=== PATIENT | female | born 1945 | race Caucasian/White ===

== ENCOUNTER → 2016-09-16 | Outpatient (CLI) | payer MEDICARE, OTHER ==
[~2016-09-16] MED LIST: ALLEGRA DPS180 MG PO; ASA325 MG PO; BONIVA150 MG PO; CALCIUM 600 +1 EAC6 PO; LACRI-LUBE3.5 GM OU; MIRALAX17 GM PO; MONTELUKAST SOD10 MG PO; OXY IR DPS5 MG PO; PROTONIX40 MG PO; RESTASIS1 EACH OU; SENOKOT S1 TAB PO; SYNTHROID100 MCG PO; THERAPEUTIC MUL1 TAB PO; TYLENOL DPS325 MG PO; ULTRAM DPS50 MG PO
== END | disposition home or self-care (01) ==
LOC: PTH.S 08:03
DX: Z01.812 Encounter for preprocedural laboratory examination (principal)

== ENCOUNTER 2016-10-01 08:08 | Inpatient (IN) | payer MEDICARE, OTHER ==
[~2016-10-01] VITALS: Ht 162.6 cm; Wt 84.5 kg
--- NOTE | ~2016-10-01 | OR ---
ADMIT: 10/01/2016 RM/LOC: 532 [facility] MR#: [id number] [address] [address] [address] [place] [address] Operative/Delivery Room Report SEX: F AGE: 71 : 1945 SURGERY DATE: 10/01/2016 SURGEON: Kevin Chino MD PREOPERATIVE DIAGNOSIS: Right knee degenerative joint disease. POSTOPERATIVE DIAGNOSIS: Right knee degenerative joint disease. PROCEDURE: Right total knee arthroplasty with Exparel knee block. PARTY HOST/HOSTESS: CAROL Rodgers ANESTHESIA: Spinal. ESTIMATED BLOOD LOSS: 50 mL. TOTAL TOURNIQUET TIME: Approximately 77 minutes. COMPLICATIONS: None. CONDITION: Stable to recovery room. IMPLANTS USED: We used a DePuy Sigma posterior stabilized total knee arthroplasty. A size 4 narrow component, size 3 tibial tray, a 10 mm tibial insert, and a 32 mm patellar button. Two Batches of cement. INDICATIONS: The patient is a 71-year-old female with longstanding right knee pain. We scoped the knee in the past, treated her conservatively with injections, activity modification, anti-inflammatory medications without relief of her symptoms. They continued to worsen and caused her significant pain and discomfort here. At this point, she would like to proceed with a right total knee arthroplasty. We discussed procedure, as well as the risks and benefits with her. She does agree to proceed at this point. Questions were also answered. PROCEDURE IN DETAIL: After informed consent was obtained, the patient was taken to the operating room, placed on the operating table in supine position. The patient was placed in a seated position and spinal anesthetic was administered. After adequate spinal anesthesia, the patient was returned to supine, tourniquet was placed on right upper thigh and right lower extremity was prepped and draped in the usual sterile fashion. Once this was completed, we exsanguinated the right lower extremity, inflated the tourniquet to 300 mmHg. We then made a midline incision through the skin and subcutaneous tissues, made a bit of a medial flap here. We then entered the knee joint through a medial parapatellar incision. Once this was completed, we removed the fat pad and synovium in the suprapatellar region. Once this was completed, we then performed a medial release off the proximal tibia using Bovie electrocautery as well as a Romero elevator. The patella was then everted, knee flexed, and the infrapatellar fat pad was excised at this point. Once this was ADMIT: 10/01/2016 RM/LOC: 532 [facility] MR#: [id number] [address] [address] [address] [place] [address] Operative/Delivery Room Report SEX: F AGE: 71 : 1945 completed, the intramedullary guide for the femoral component was then placed into the distal femur. We then placed the intramedullary guide, set to remove 12 mm of distal bone and 5 degrees of valgus. Once this was completed, we pinned the cutting guide in position and made our distal femoral cut. Once this was completed, the tibial guide was then placed, and once this was in good position, this was pinned and our tibial cut was then performed. The tibial bone was removed using a large clamp and Bovie electrocautery. Once this was completed, the knee was then extended, we placed a 10 mm spacer block with good full extension, and good stability noted. We then placed a clinical services director, cleaned the medial lateral meniscus and soft tissue at this point. Once this was all cleaned out, attention was directed to patella. We set the patella guide to remove 9.5 mm patella, clamped the patella, everted this, and made our patellar cut. This sized to a size 32, placed the template, and impacted this into position, and drilled the lugs for the patella. A 32 mm patellar button was then placed. The patella was once again everted and the knee was then flexed back up again. We placed the femoral sizing guide and this sized to about a size 4. We then placed the size 4 four-in-one cutting guide in 3 degrees of external rotation, pinned this into position in the neutral hole. We then made our anterior, posterior, and chamfer cuts. We then placed a size 4 box cutting guide, pinned this into position, and made our box cut. Once this was completed, we then trialed the knee. We placed a 4 narrow femoral component. This was a good fit on the femur. A size 3 tibial tray, 32 mm patellar button, and a 10 mm insert. We got a good full extension here, good flexion, good tracking of the patella, also with good stability. Once this was completed, we then drilled the lugs for the femoral component. The trial components were then removed at this point. A medial, lateral, and popliteal retractors were then placed, and the size 3 tibial tray was then placed and this appeared to be good size fit with the tibia well and this was then pinned into position. We then prepared the tibia using the reamer, followed by the keel punch. Once this was completed, the knee was then extended, and once again, the knee was copiously irrigated. The medial, lateral, and posterior capsule was injected with Exparel at this time. Once this was completed, the knee was then flexed back up. The components were opened on the back table to include a size 4 narrow femoral component, a size 3 tibial component, and a 32 mm patellar button. While we were washing the knee including the bone ends, the cement was being mixed on the back table. Medial, lateral, and popliteal retractors were replaced. Once the bone ends were copiously irrigated and cleaned using pulse lavage, we used lap and sponges to dry the bone and sterilely. Once this was completed, and the cement was ready, we then placed cement onto the proximal tibia, finger packing this down into the keel hole and onto the proximal tibia. The tibial component was then placed and impacted into position. The excess cement was removed using a [place] elevator. Once this was completed, the cement was then placed onto the distal femur, 2 small dabs on the posterior condyle of the component. We then placed the femoral component, impacted this into position removing the excess cement using a [place] elevator. We then placed a 12.5 insert to compress this while the cement was drying put the heel on the table on a pad. Cement was then placed onto the patella and the 32 mm patellar button was then placed, patellar clamp was ADMIT: 10/01/2016 RM/LOC: 532 [facility] MR#: [id number] [address] [address] [address] [place] [address] Operative/Delivery Room Report SEX: F AGE: 71 : 1945 placed. Holding this in position, the excess cement was once again removed using a [place] elevator. Once this was completed, the knee was copiously irrigated with fluid and we waited for the cement to cure. While the cement was curing, we injected additional Exparel in the quad tendon periosteum and remaining suprapatellar pouch region. Once the cement was cured, we removed the patellar clamp. We removed the 12.5 insert, placed a 10 insert once again, good full extension, good flexion, good stability, and good tracking of the patella. At this point, we elected to use a 10 mm tibial insert. The knee was then flexed up. The trial insert was removed. Tibial tray was copiously irrigated, and a permanent 10 mm insert was placed into the tray, impacted, and locked into position here. Once this was completed, the knee was once again copiously irrigated. A medium Hemovac drain was placed. The medial parapatellar incision was reapproximated using #1 Vicryl in a [id number] fashion. The remainder of the Exparel was injected in the subcutaneous tissue. Subcutaneous tissue was then closed using 2-0 Vicryl in a simple interrupted fashion. Skin was closed using skin luke. A sterile compressive dressing was then applied consisting of Xeroform, plain gauze, ABDs, Webril, Delfino wrap from the foot to the thigh. The patient was then transferred to recovery in stable condition. Tourniquet was deflated for a total tourniquet time approximately 77 minutes. I think we are going to keep the drain to gravity for 6 hours and then suction drainage. EDIT: 10/02/2016 0558 njv Kevin Chino MD/ mariah JOB #: [id number] CC: Kevin Chino, Attending Physician Alexis Ibarra ([facility]), Family Physician
--- NOTE | ~2016-10-01 | HP ---
ADMIT: 10/01/2016 RM/LOC: W.02 [facility] MR#: [id number] [facility]#: [id number] [address] [address] [address] [place] [address] Pre-OP History and Physical SEX: F AGE: 71 : 1945 DATE OF SERVICE: CHIEF COMPLAINT: Right knee pain. HISTORY OF PRESENT ILLNESS: The patient is a 71-year-old female, whom we have been seeing for right knee pain and degenerative joint disease here. At this time, she has failed conservative treatment and elected to proceed with a right total knee arthroplasty. We have done anti-inflammatories injections. She has had a knee scope in the past here as well. Also, she has had injections in the knee and activity modification. She is to the point where the knee is significantly interfering with her daily activities and she would like to proceed with knee replacement at this point. We discussed procedure as well as risks and benefits with her at length. She would like to proceed. PAST MEDICAL HISTORY: Significant for hypothyroidism, allergic rhinitis, osteoarthritis. MEDICATIONS: Include: 1. Multivitamin. 2. Meloxicam. 3. Fluticasone. 4. Levothyroxine. 5. Calcium. 6. Aspirin. 7. Montelukast. 8. Tylenol Extra Strength. 9. Ibandronate. 10.Fexofenadine. 11.Fish oil concentrate. 12.Restasis Multidose. 13.Refresh eye drops. ALLERGIES: TETANUS VACCINE AND TOXOID. SOCIAL HISTORY: Denies alcohol or tobacco use. Lives in [place]. REVIEW OF SYSTEMS: Noncontributory. PHYSICAL EXAMINATION: HEENT, HEART, LUNGS, AND ABDOMEN: As per Dr. Bryant's preoperative evaluation. MUSCULOSKELETAL: Examination of the right knee rather note much way of an effusion. Range of motion, close to 0 degrees of extension. Flexion about 125 degrees. No ligamentous instability. She does have some crepitus in the knee, tenderness along both medial and lateral joint lines as well as parapatellar region. She otherwise distally neurovascularly intact. ADMIT: 10/01/2016 RM/LOC: [facility] MR#: [id number] [address] [address] [address] [place] [address] Pre-OP History and Physical SEX: F AGE: 71 : 1945 IMAGING: X-ray show at least moderate degenerative changes in the right knee. No significant osteophytes or subchondral sclerosis noted. ASSESSMENT: Right knee degenerative joint disease, which has failed conservative treatment. PLAN: At this point, she would like to proceed with a right total knee arthroplasty. The procedure as well as risks and benefits were discussed with the patient at length. Questions were answered. We also showed DVD on total knee arthroplasty in the office as well. Plan on doing a right DePuy Sigma total knee arthroplasty. She does understand and does agree to proceed at this point. I will plan on doing this at [facility]. Kevin Chino MD/ mariah JOB #: [id number] CC: Kevin Chino, Attending Physician Alexis Ibarra ([facility]), Family Physician
[2016-10-04] MEDS ORDERED: THERAPEUTIC MUL1 TAB PO (19:48)
[2016-10-04] MEDS ORDERED: ASA325 MG PO (19:49)
[2016-10-04] MEDS ORDERED: MONTELUKAST SOD10 MG PO (19:49)
[2016-10-04] MEDS ORDERED: CALCIUM 600 +1 EAC6 PO (19:49)
[2016-10-04] MEDS ORDERED: SYNTHROID100 MCG PO (19:49)
[2016-10-04] MEDS ORDERED: LACRI-LUBE3.5 GM OU (19:50)
[2016-10-04] MEDS ORDERED: ALLEGRA DPS180 MG PO (19:50)
[2016-10-04] MEDS ORDERED: TYLENOL DPS325 MG PO (19:50)
[2016-10-04] MEDS ORDERED: BONIVA150 MG PO (19:50)
[2016-10-04] MEDS ORDERED: RESTASIS1 EACH OU (19:51)
[2016-10-04] MEDS ORDERED: SENOKOT S1 TAB PO (19:51)
[2016-10-04] MEDS ORDERED: MIRALAX17 GM PO (19:51)
[2016-10-04] MEDS ORDERED: PROTONIX40 MG PO (19:51)
[2016-10-04] MEDS ORDERED: OXY IR DPS5 MG PO (19:52)
[2016-10-04] MEDS ORDERED: ULTRAM DPS50 MG PO (19:52)
--- NOTE | 2016-10-14 08:28 | CO ---
ADMIT: 10/01/2016 RM/LOC: [facility] MR#: [id number] [address] [address] [address] [place] [address] Consultation Report SEX: F AGE: 71 : 1945 DATE OF CONSULTATION: 09/18/2016 ATTENDING PHYSICIAN: Kevin Chino CONSULTING PHYSICIAN: Amos Bryant DO DATE OF PLANNED SURGERY: 10/01/2016. REASON FOR PREOP CONSULT: Knee replacement surgery. HISTORY OF PRESENT ILLNESS: This is a pleasant 71-year-old, female patient, who plans to undergo right knee replacement by Dr. Chino on the . She has long-standing history of DJD and over the winter slipped on a stair step and twisted her left knee. This has placed increasing strain and discomfort on her right knee and she is now at a point where she would like to have it replaced. She has undergone prior knee arthroscopy surgery. She also has a history of hypothyroidism, chronic DJD, allergic rhinitis, osteoporosis, and dry eyes. CURRENT MEDICATIONS: 1. Multivitamin. 2. Fish oil. 3. Calcium. 4. Aspirin. 5. Levothyroxine. 6. Meloxicam. 7. Montelukast. 8. Fexofenadine. 9. Fluticasone. 10.Ibandronate. 11.Tylenol. 12.Refresh. 13.Restasis. For specifics of dosing, please refer to her admission orders, but note that we are holding aspirin, meloxicam, and fish oil in preparation for surgery x1 week. SOCIAL HISTORY: She is , does not smoke. FAMILY HISTORY: Noncontributory. REVIEW OF SYSTEMS: Negative for chest pain, shortness of breath, cough, or sputum production. She does have chronic upper respiratory allergic symptoms. She has no fevers or chills. PHYSICAL EXAMINATION: GENERAL: She is pleasant, alert, well kept and in no apparent distress. Her is with her and very supportive of her upcoming plan. VITAL SIGNS: She has a blood pressure of 152/82, weight 178 pounds, and body ADMIT: 10/01/2016 RM/LOC: [facility] MR#: [id number] [address] [address] [place] [address] Consultation Report SEX: F AGE: 71 : 1945 mass index of 29.6. EARS, NOSE, AND THROAT: Normal. She has no JVD or bruit. HEART: Regular. LUNGS: Clear. No peripheral edema and good pulses. ABDOMEN: Soft, nontender. LABORATORY DATA: CBC and BMP are within healthy range. IMPRESSION: Generally healthy 71-year-old, female patient, with osteoarthritis and planned knee replacement. Again, we will hold her anti- inflammatories and fish oil. Continue all other medicines including thyroid supplementation. I will help assist and manage her care postoperatively, and we will use aspirin as DVT prophylaxis. Amos Bryant DO/ mariah JOB #: [id number] CC: Kevin Chino, Attending Physician Alexis Ibarra ([facility]), Family Physician
--- NOTE | 2016-10-15 09:37 | DS ---
ADMIT: 10/01/2016 RM/LOC: 532 [facility] MR#: [id number] [id number] [place], [place] [address] [address] [place] [address] General Discharge Summary SEX: F AGE: 71 : 1945 ADMISSION DATE: 10/01/2016 DISCHARGE DATE: 10/03/2016 REASON FOR ADMISSION: Elective right total knee arthroplasty after failing conservative treatment. PREOPERATIVE DIAGNOSIS: Right knee degenerative joint disease. POSTOPERATIVE DIAGNOSIS: Right knee degenerative joint disease. PROCEDURE PERFORMED: Right total knee arthroplasty. GUT SNATCHER: CAROL Drummond ANESTHESIA: Spinal. ESTIMATED BLOOD LOSS: 50 mL. COMPLICATIONS: None. ACTIVE MEDICAL PROBLEMS: Hypothyroidism, chronic DJD, allergic rhinitis, osteoporosis, and dry eyes. HOSPITAL COURSE: The patient was admitted on 10/01/2016 for elective right total knee arthroplasty done successfully without any complications by Dr. Kevin Chino. She tolerated the procedure well. Postoperatively, she did well with pain control with the use of intraoperative Exparel and postoperative oral analgesics. She did suffer from some mild acute blood loss anemia. Her hemoglobin dropped to 9.5 on 10/03/2016, which remained hemodynamically stable and did not require blood transfusion. By postoperative day #2, she was stable and participating well with physical therapy. She was safe and ready for discharge home with plans for outpatient physical therapy. DISCHARGE MEDICATIONS: 1. Aspirin 325 mg at bedtime. 2. Levothyroxine 100 mcg everyday. 3. Montelukast 10 mg in the evening. 4. Fexofenadine 180 mg every day. 5. Ibandronate 150 mg, every th of the month. 6. Tylenol 650 mg every 6 hours as needed for pain. ADMIT: 10/01/2016 RM/LOC: 532 [facility] MR#: [id number] [address] [address] [address] [place] [address] General Discharge Summary SEX: F AGE: 71 : 1945 7. Refresh Optive Advanced eyedrops twice daily both eyes. 8. Restasis 0.05% one drop twice daily, both eyes. 9. MiraLax 17 g every day. 10.Protonix 40 mg at bedtime for six weeks. 11.Senokot two tablets twice daily. 12.Ultram 50 to 100 mg every 6 hours as needed for pain. 13.Oxycodone 5 to 10 mg every 4 hours as needed for breakthrough pain. DISCHARGE INSTRUCTIONS: The patient was discharged home with plans for outpatient physical therapy. Follow up in the orthopedic office in 2 weeks for wound check and 6 weeks with x-ray. Follow up with primary care as directed. CAROL Andersen / Kevin Chino MD / modl JOB #: [id number] CC: Kevin Chino MD, Attending Physician Alexis Ibarra ([facility]), Family Physician
== END 2016-10-03 16:00 | disposition home or self-care (01) | DRG 470 ==
LOC: WOR 10:07 → 5MS 10:07
PROVIDERS: ADMIT Orthopaedic Surgery
PROC: 0SRC0J9 Replacement of Right Knee Joint with Synthetic Substitute, Cemented, Open Approach (ICD-10-PCS; principal; 2016-10-01)
DX: M17.11 Unilateral primary osteoarthritis, right knee (principal); D62 Acute posthemorrhagic anemia; E03.9 Hypothyroidism, unspecified; J30.9 Allergic rhinitis, unspecified; M81.0 Age-related osteoporosis without current pathological fracture; H04.123 Dry eye syndrome of bilateral lacrimal glands; Z79.82 Long term (current) use of aspirin; Z86.718 Personal history of other venous thrombosis and embolism